=== PATIENT | female | born 2000 | race Caucasian/White ===

== ENCOUNTER 2019-09-12 17:10 | Outpatient (CLI) | payer OTHER, SELFPAY ==
--- NOTE | ~2019-09-12 | XR_ITS ---
EXAMINATION: XR chest 2V EXAM DATE: 09/12/2019 17:33 INDICATION: Screening for tuberculosis. TECHNIQUE: Frontal and lateral projections of the chest obtained and reviewed. There is no prior tatum dy for comparison. FINDINGS: The lungs are clear. There are no pleural effusions. The cardiomediastinal silhouette is within normal limits. There is no pneumothorax suspected. The bones and soft tissues are unremarkab le. IMPRESSION: Normal chest x-ray exam. Reviewed, dictated and finalized at location A. IMPRESSION: Normal chest x-ray exam.
== END 2019-09-12 17:11 | disposition home or self-care (01) ==
LOC: CHSIMG 17:17
PROVIDERS: PCP Internal Medicine; Visit Provider Internal Medicine
DX: Z11.1 Encounter for screening for respiratory tuberculosis (principal)
CPT/HCPCS: 71046

== ENCOUNTER 2019-11-13 01:45 | Emergency (ER) | payer OTHER, SELFPAY ==
[2019-11-13 01:50] VITALS: BP 150/81; PULSE 112; RESP 20; TEMP 37.1; O2SAT 100
--- NOTE | 2019-11-13 01:58 | ED.DIZZY ---
HPI - Dizziness General Chief Complaint: Dizziness Stated Complaint: DIZZY Source: patient Mode of arrival: ambulatory Limitations: no limitations History of Present Illness HPI Narrative: This is a 19-year-old female presents with an episode of dizziness and lightheadedness after she was woken middle the night by a loud noises she heard the kitchen and as she stood up when she got out of bed she felt dizzy lightheaded with an episode where she had to use bathroom with bowel movement. Patient denies any nausea or vomiting currently there is no lightheaded or dizziness no abdominal pain no chest pain, no palpitations no shortness of breath. Patient is on control and antidepressants. MD elicited complaint: dizziness and lightheadedness Onset (ago): hour(s) Timing: sudden onset Severity: mild Description: lightheadedness Exacerbating factors: change in body position Relieving factors: nothing Associated symptoms: denies other symptoms Related Data Home Medications Medication Instructions Recorded Confirmed doxycycline monohydrate 100 mg PO DAILY 11/13/19 11/13/19 escitalopram oxalate 5 mg PO DAILY 11/13/19 11/13/19 medroxyprogesterone 150 mg IM DIRECTED 11/13/19 11/13/19 Review of Systems Review of Systems: All systems reviewed & are unremarkable except as noted in HPI and below PMFSH Past Medical History Medical History Depression Exam Const: General: healthy appearing, no acute distress and alert Orientation/consciousness: patient oriented x3 HENMT: Head: normal to inspection Eyes: Conjunctivae: conjunctivae normal Pupils: Equal, round and reactive pupils present EOM: EOMs intact bilaterally Neck: Neck: normal visual inspection, no lymphadenopathy and no meningeal signs Chest: Chest palpation & inspection: normal inspection of the chest Resp: Effort & Inspection: normal respiratory effort Cardio: Rate: regular rate Rhythm: regular rhythm GI: Auscultation: normal bowel sounds : General: Yes no CVA tenderness Back/Spine/Pelvis: Back: no CVA tenderness Skin: General skin exam: normal color Rashes: no rashes Neuro: General: patient oriented x3, moves all extremities and no meningeal signs Extrem: General: normal to inspection and no pedal edema Psych: Appearance: grossly normal Mental Status: mental status grossly normal Affect: normal affect Course Course Emergency Course: currently patient is asymptomatic with no palpitations EKG interpretation is normal sinus rhythm and discuss this with patient and family and patient can't go home. Critical Care Time Critical Care Time Critical Care Time: No Discharge Plan Discharge Clinical Impression: Dizziness Patient Disposition: Home, Self-Care Condition: Stable Instructions: Antibiotic Form, Dizziness (ED) Additional Instructions: follow-up with primary care physician within 1 week for further evaluation treatment. Prescriptions: No Action doxycycline monohydrate 100 mg capsule 100 mg PO DAILY RF: 0 medroxyprogesterone 150 mg/mL syringe 150 mg IM DIRECTED RF: 0 escitalopram oxalate 5 mg tablet 5 mg PO DAILY RF: 0 Follow-up/Referrals: Baldev Castellon MD [Primary Care Provider] - Time of Disposition: 02:09
--- NOTE | 2019-11-13 02:01 | ECG_ITS ---
Measurements Intervals [place] Rate: 82 P: 49 [place]: 137 QRS: 63 QRSD: 88 T: 12 QT: 360 QTc: 423 Interpretive Statements SINUS RHYTHM INCOMPLETE RIGHT BUNDLE BRANCH BLOCK NONSPECIFIC T-WAVE ABNORMALITY- ANT/INF LEADS BORDERLINE ECG Electronically Signed On 11-14-2019 7:02:50 CDT by Master Chapa D.O.
== END 2019-11-13 02:12 | disposition home or self-care (01) ==
PROVIDERS: Emergency Provider Emergency Medicine; PCP Internal Medicine
DX: R42 Dizziness and giddiness (principal)
CPT/HCPCS: 93005; 99283

== ENCOUNTER 2020-04-16 12:21 | Outpatient (CLI) | payer OTHER, SELFPAY ==
[2020-04-16 12:49] LABS: Pregnancy On Board Control Positive; Urine Pregnancy Test Negative
== END 2020-04-16 12:22 | disposition home or self-care (01) ==
PROVIDERS: PCP Internal Medicine; Visit Provider Specialist
DX: L70.0 Acne vulgaris (principal); Z79.899 Other long term (current) drug therapy
CPT/HCPCS: 81025

== ENCOUNTER 2020-08-21 17:56 | Outpatient (CLI) | payer OTHER, SELFPAY ==
--- NOTE | ~2020-08-21 | XR_ITS ---
EXAMINATION: XR chest 2V EXAM DATE: 08/21/2020 18:09 INDICATION: TB screening. no current complaints . TECHNIQUE: Frontal and lateral projections of the chest obtained and reviewed. Comparison is made to prior examination from 09/12/2019. FINDINGS: The lungs are clear. There are no pleural effusions. The cardiomediastinal silhouette is within normal limits. There is no pneumothorax suspected. The bones and soft tissues are unremarkab le. IMPRESSION: Normal chest x-ray exam. Reviewed, dictated and finalized at location G. IMPRESSION: Normal chest x-ray exam.
== END 2020-08-21 17:57 | disposition home or self-care (01) ==
LOC: CHSIMG 17:57
PROVIDERS: PCP Internal Medicine; Visit Provider Internal Medicine
DX: Z11.1 Encounter for screening for respiratory tuberculosis (principal)
CPT/HCPCS: 71046

== ENCOUNTER 2021-01-22 11:42 | Outpatient (CLI) | payer OTHER, SELFPAY ==
[2021-01-22 15:30] LABS: SARS-CoV-2 RNA PCR Negative (Negative)
== END 2021-01-22 11:43 | disposition home or self-care (01) ==
LOC: CHSLAB 11:46
PROVIDERS: PCP Internal Medicine; Visit Provider Internal Medicine
DX: J06.9 Acute upper respiratory infection, unspecified (principal); Z20.822 Contact with and (suspected) exposure to COVID-19
CPT/HCPCS: C9803; U0003; U0005

== ENCOUNTER 2021-01-29 09:11 | Outpatient (CLI) | payer OTHER, SELFPAY ==
[2021-01-29 13:31] LABS: Influenza A QL RT-PCR Negative (Negative); Influenza B QL RT-PCR Negative (Negative); SARS-CoV-2 RNA PCR Negative (Negative)
== END 2021-01-29 09:12 | disposition home or self-care (01) ==
LOC: CHSLAB 09:13
PROVIDERS: PCP Internal Medicine; Visit Provider Internal Medicine
DX: J06.9 Acute upper respiratory infection, unspecified (principal)
CPT/HCPCS: 87081; 87502; 87880; C9803; U0003; U0005